=== PATIENT | male | born 1980 | race Hispanic/Latino ===

== ENCOUNTER 2016-10-08 22:34 | Observation (INO) | payer SELFPAY ==
[2016-10-08 22:42] VITALS: BMI 38.7
[2016-10-08] MEDS ORDERED: Sodium Chloride 0.9% 1,000 ML IV STA (22:52)
[2016-10-08] MEDS ORDERED: HYDROmorphone 2 mg/ml ISec IVP STA (22:53)
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
[2016-10-08 23:35] LABS: URINE BILIRUBIN NEGATIVE (NEGATIVE); URINE BLOOD LARGE (NEGATIVE); URINE GLUCOSE (UA) NEGATIVE (NEGATIVE); URINE LEUKOCYTE ESTERASE SMALL Leu/uL (NEGATIVE); URINE NITRATE NEGATIVE (NEGATIVE); URINE PROTEIN 100 mg/dL (<30 mg/dL)
[2016-10-08 23:48] LABS: BASO # 0.03 K/mm3 (0.0-2.0); BASO % 0.4 % (0.0-3.0); EOS # 0.1 (0.0-0.7); EOS % 1.3 % (1.5-5.0); GRAN # 5.11 (1.4-6.5); GRAN % 67.8 % (50.0-68.0); HEMOGLOBIN 13.2 gm/dL (14.0-18.0); LYMPH # 1.7 (1.2-3.4); LYMPH % 22.4 % (22.0-35.0); MEAN CELL VOLUME 93.8 fL (80.0-105.0); MEAN CORPUSCULAR HEMOGLOBIN 32.7 pg (25.0-35.0); MEAN CORPUSCULAR HGB CONC 34.8 g/dl (31.0-37.0); MEAN PLATELET VOLUME 9.9 fl (7.0-11.0); MONO # 0.6 (0.1-0.6); MONO % 8.1 % (1.0-6.0); PLATELET COUNT 234 10^3/uL (120.0-450.0); RBC 4.04 10^6/uL (3.5-6.1); RED CELL DISTRIBUTION WIDTH 13.7 % (11.5-14.5); URINE APPEARANCE CLOUDY (CLEAR); URINE COLOR LIGHT RED (YELLOW); WHITE BLOOD COUNT 7.5 10^3/ul (4.5-11.0)
[2016-10-08 23:52] LABS: URINE BACTERIA FEW (NEG); URINE EPITHELIAL CELLS 0 - 2 /hpf (0-5); URINE RBC 25 - 30 /hpf (0-2)
[2016-10-08 23:55] LABS: ALB/GLOB RATIO 1.1 (1.1-1.8); ALT/SGPT 34 U/L (7-56); AST/SGOT 33 U/L (15-59); BLOOD UREA NITROGEN 20 mg/dL (7-21); GFR AFRICAN-AMERICAN > 60; GFR NON-AFRICAN AMERICAN > 60
--- NOTE | 2016-10-09 00:22 | CT ---
EXAM: CT Abdomen and Pelvis Without Intravenous Contrast CLINICAL HISTORY: 35 years old, male; Pain; Abdominal pain; Flank; Right; Prior surgery; Surgery date: <1 month; Surgery type: Stent; Additional info: Flank pain TECHNIQUE: Axial computed tomography images of the abdomen and pelvis without intravenous contrast. This CT exam was performed using one or more of the following dose reduction techniques: automated exposure control, adjustment of the mA and/or kV according to patient size, and/or use of iterative reconstruction technique. Coronal and sagittal reformatted images were created and reviewed. COMPARISON: CT - ABD PELVIS W/O PO OR IV CONT 01/13/2016 5:56:14 PM FINDINGS: Lower thorax: Minimal atelectasis/scarring. ABDOMEN: Liver: Unremarkable. Gallbladder and bile ducts: No calcified stones. No ductal dilation. Pancreas: Unremarkable. No ductal dilation. Spleen: Mild splenomegaly. Adrenals: No mass. Kidneys and ureters: Punctate calculus within LEFT kidney. No hydronephrosis. LEFT ureteral stent. Stomach and bowel: No definite mural thickening. No obstruction. Appendix: Normal caliber. No inflammation. PELVIS: Bladder: Unremarkable. No stones. Reproductive: Unremarkable as visualized. ABDOMEN and PELVIS: Intraperitoneal space: No significant fluid collection. No free air. Bones/joints: No acute fracture. Soft tissues: Unremarkable. Vasculature: Unremarkable. No aneurysm. Lymph nodes: No pathologically enlarged lymph nodes. IMPRESSION: 1. Nonobstructing renal calculus. 2. Incidental/non-acute findings are described above.
[2016-10-09] MEDS ORDERED: cefTRIAXone 1 gm 1 GM/100 ML BAG IVPB STA (00:38)
[2016-10-09] MEDS ORDERED: HYDROmorphone 2 mg/ml ISec IVP PRN (01:58)
[2016-10-09] MEDS ORDERED: Sodium Chloride 0.9% 100 ML IV SCH (01:58)
[2016-10-09 02:30] LABS: INR 1.06 (0.93-1.08); PARTIAL THROMBOPLASTIN TIME 26.3 Seconds (23.7-30.8); PROTHROMBIN TIME 11.5 Seconds (9.9-11.8)
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
[2016-10-09] MEDS ORDERED: HYDROmorphone 1 mg/ml ISec IVP PRN (07:02)
[2016-10-09 07:11] LABS: BASO # 0.03 K/mm3 (0.0-2.0); BASO % 0.5 % (0.0-3.0); EOS # 0.1 (0.0-0.7); EOS % 2.2 % (1.5-5.0); GRAN % 61.8 % (50.0-68.0); HEMOGLOBIN 12.5 gm/dL (14.0-18.0); LYMPH # 1.5 (1.2-3.4); LYMPH % 24.6 % (22.0-35.0); MEAN CELL VOLUME 94.7 fL (80.0-105.0); MEAN CORPUSCULAR HEMOGLOBIN 31.8 pg (25.0-35.0); MEAN CORPUSCULAR HGB CONC 33.6 g/dl (31.0-37.0); MEAN PLATELET VOLUME 9.6 fl (7.0-11.0); MONO # 0.7 (0.1-0.6); MONO % 10.9 % (1.0-6.0); PLATELET COUNT 199 10^3/uL (120.0-450.0); RBC 3.93 10^6/uL (3.5-6.1)
[2016-10-09 07:28] LABS: ALB/GLOB RATIO 1.3 (1.1-1.8); ALBUMIN 3.8 g/dL (3.0-4.8); ALT/SGPT 33 U/L (7-56); AST/SGOT 30 U/L (15-59); BLOOD UREA NITROGEN 20 mg/dL (7-21); CALCIUM 8.8 mg/dL (8.4-10.5); GFR AFRICAN-AMERICAN > 60; GFR NON-AFRICAN AMERICAN > 60
[2016-10-09 08:10] VITALS: PULSE 52; RESP 20
[2016-10-09 08:46] LABS: BARBITURATES, UR NEGATIVE (NEGATIVE); BENZODIAZEPINES, UR NEGATIVE (NEGATIVE); OPIATES, UR POSITIVE (NEGATIVE); PHENCYCLIDINE, UR NEGATIVE (NEGATIVE)
[2016-10-09] MEDS ORDERED: HYDROmorphone 2 mg/ml ISec IVP STA ×2 (08:58)
[2016-10-09] MEDS ORDERED: HYDROmorphone 1 mg/ml ISec IVP STA (08:59)
--- NOTE | 2016-10-09 10:39 | RAD ---
HISTORY: is left ureteral stone visible COMPARISON: No prior. FINDINGS: BOWEL: Normal. No obstruction. No free air. BONES: Normal. OTHER FINDINGS: There is a left ureteral stent. There are no visible stones along side the stent or within the kidney IMPRESSION: No active disease.
--- NOTE | 2016-10-09 13:02 | US ---
HISTORY: Leg pain and swelling. Evaluate for DVT PHYSICIAN(S): Otto Sewell MD. TECHNIQUE: Duplex sonography and color-flow Doppler with graded compression were used to evaluate the deep venous systems of both lower extremities. FINDINGS: The visualized deep venous systems of both lower extremities are sonographically normal and compressible. Normal wave forms and augmentation are seen. There is no sonographic evidence for deep venous thrombosis in the visualized segments of both lower extremities. IMPRESSION: No sonographic evidence for deep venous thrombosis in the visualized segments of both lower extremities.
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
[2016-10-09] MEDS ORDERED: HYDROmorphone 1 mg/ml ISec IVP ONE (14:10)
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
[2016-10-09 18:07] VITALS: BP 127/78; TEMP 97; O2SAT 98
== END 2016-10-09 18:35 | disposition home or self-care (01) ==
LOC: ED 22:34 → ERH 10-09 00:37 → 3RNO 10-09 01:50
PROVIDERS: ADMIT Internal Medicine; ATTEND Internal Medicine
DX: N20.0 Calculus of kidney (principal); N39.0 Urinary tract infection, site not specified; I10 Essential (primary) hypertension; F17.290 Nicotine dependence, other tobacco product, uncomplicated; E78.5 Hyperlipidemia, unspecified; E87.6 Hypokalemia; Z86.718 Personal history of other venous thrombosis and embolism; Z79.01 Long term (current) use of anticoagulants
CPT/HCPCS: 74022; 74176; 80053; 81001; 84550; 85025; 85610; 85730; 86140; 87040; 87086; 93970; 96365; 96366; 96375; 96376; 99284; C9113; G0378; G0480; J0696; J1170; J2405; J3480; J7040

== ENCOUNTER 2016-10-11 21:04 | Observation (INO) | payer SELFPAY ==
[2016-10-11 21:05] VITALS: BMI 38.7
[2016-10-11] MEDS ORDERED: Sodium Chloride 0.9% 1,000 ML IV STA (22:06)
[2016-10-11] MEDS: HYDROmorphone 2 mg/ml ISec IVP STA (22:19)
[2016-10-11 22:21] LABS: BASO # 0.03 K/mm3 (0.0-2.0); BASO % 0.6 % (0.0-3.0); EOS # 0.3 (0.0-0.7); EOS % 4.7 % (1.5-5.0); GRAN # 3.19 (1.4-6.5); GRAN % 60.2 % (50.0-68.0); HEMOGLOBIN 14.7 gm/dL (14.0-18.0); LYMPH # 1.2 (1.2-3.4); LYMPH % 23.2 % (22.0-35.0); MEAN CELL VOLUME 93.9 fL (80.0-105.0); MEAN CORPUSCULAR HEMOGLOBIN 33.3 pg (25.0-35.0); MEAN CORPUSCULAR HGB CONC 35.5 g/dl (31.0-37.0); MEAN PLATELET VOLUME 9.4 fl (7.0-11.0); MONO # 0.6 (0.1-0.6); MONO % 11.3 % (1.0-6.0); PH,URINE 7.5 (4.7-8.0); PLATELET COUNT 255 10^3/uL (120.0-450.0); RBC 4.41 10^6/uL (3.5-6.1); RED CELL DISTRIBUTION WIDTH 13.5 % (11.5-14.5); URINE BILIRUBIN NEGATIVE (NEGATIVE); URINE BLOOD LARGE (NEGATIVE); URINE GLUCOSE (UA) NEGATIVE (NEGATIVE); URINE LEUKOCYTE ESTERASE SMALL Leu/uL (NEGATIVE); URINE NITRATE NEGATIVE (NEGATIVE); URINE PROTEIN 30 mg/dL (<30 mg/dL); URINE UROBILINOGEN 0.2 E.U./dL (<1 E.U./dL); WHITE BLOOD COUNT 5.3 10^3/ul (4.5-11.0)
[2016-10-11 22:23] LABS: URINE COLOR YELLOW (YELLOW)
[2016-10-11 22:24] LABS: URINE APPEARANCE SL CLOUDY (CLEAR)
[2016-10-11 22:26] LABS: ALB/GLOB RATIO 1.2 (1.1-1.8); ALBUMIN 4.3 g/dL (3.0-4.8); ALT/SGPT 39 U/L (7-56); AST/SGOT 33 U/L (15-59); BLOOD UREA NITROGEN 17 mg/dL (7-21); CALCIUM 9.5 mg/dL (8.4-10.5); GFR AFRICAN-AMERICAN > 60; GFR NON-AFRICAN AMERICAN > 60; LIPASE 118 U/L (23-300); URINE BACTERIA FEW (NEG); URINE RBC TNTC /hpf (0-2)
[2016-10-11 22:31] LABS: INR 1.14 (0.93-1.08); PARTIAL THROMBOPLASTIN TIME 28.8 Seconds (23.7-30.8); PROTHROMBIN TIME 12.3 Seconds (9.9-11.8)
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
[2016-10-11] MEDS ORDERED: HYDROmorphone 1 mg/ml ISec IVP STA (23:10)
--- NOTE | 2016-10-12 00:07 | US ---
EXAM: US Retroperitoneal Limited, Renal CLINICAL HISTORY: 35 years old, male; Pain; Other: Lt flank pain/lt ureteral stent 2 weeks; Additional info: L flank pain, h/o ureteral stent TECHNIQUE: Real-time ultrasound of the retroperitoneum (limited) with image documentation. COMPARISON: CT - ABD PELVIS W/O PO OR IV CONT 10/08/2016 11:09:02 PM FINDINGS: Right kidney: Normal echogenicity. No calculi. No hydronephrosis. Left kidney: Normal echogenicity. No calculi. No hydronephrosis. IMPRESSION: 1.No acute findings.
[2016-10-12] MEDS ORDERED: HYDROmorphone 1 mg/ml ISec IVP STA (00:50)
[2016-10-12] MEDS ORDERED: cefTRIAXone 1 gm 1 GM/100 ML BAG IVPB STA (00:56)
[2016-10-12] MEDS: HYDROmorphone 2 mg/ml ISec IVP STA (01:08)
[2016-10-12] MEDS: HYDROmorphone 1 mg/ml ISec IVP PRN ×6 (02:57→23:00)
[2016-10-12] MEDS ORDERED: Pneumococcal 23-Valent Vaccine IM ONE (03:46)
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
[2016-10-12 07:51] LABS: INR 1.19 (0.93-1.08); PROTHROMBIN TIME 12.8 Seconds (9.9-11.8)
[2016-10-12 08:01] LABS: BASO # 0.03 K/mm3 (0.0-2.0); BASO % 0.6 % (0.0-3.0); EOS # 0.3 (0.0-0.7); EOS % 6.1 % (1.5-5.0); GRAN # 2.47 (1.4-6.5); GRAN % 50.2 % (50.0-68.0); HEMOGLOBIN 13.5 gm/dL (14.0-18.0); LYMPH # 1.4 (1.2-3.4); LYMPH % 28.7 % (22.0-35.0); MEAN CELL VOLUME 93.4 fL (80.0-105.0); MEAN CORPUSCULAR HEMOGLOBIN 31.8 pg (25.0-35.0); MEAN PLATELET VOLUME 9.5 fl (7.0-11.0); MONO # 0.7 (0.1-0.6); MONO % 14.4 % (1.0-6.0); PLATELET COUNT 228 10^3/uL (120.0-450.0); RBC 4.25 10^6/uL (3.5-6.1); RED CELL DISTRIBUTION WIDTH 13.5 % (11.5-14.5); WHITE BLOOD COUNT 4.9 10^3/ul (4.5-11.0)
[2016-10-12 08:12] LABS: ALB/GLOB RATIO 1.1 (1.1-1.8); ALBUMIN 3.6 g/dL (3.0-4.8); ALT/SGPT 33 U/L (7-56); AST/SGOT 33 U/L (15-59); BLOOD UREA NITROGEN 14 mg/dL (7-21); CALCIUM 8.9 mg/dL (8.4-10.5); GFR AFRICAN-AMERICAN > 60; GFR NON-AFRICAN AMERICAN > 60
[2016-10-12] MEDS ORDERED: Enoxaparin 40 mg Syringe SC SCH (10:00)
[2016-10-12] MEDS: Sodium Chloride 0.9% 1,000 ML IV SCH (13:06)
[2016-10-12] MEDS ORDERED: HYDROmorphone 0.5 mg/0.5 ml ISec IVP STA (23:44)
[2016-10-13] MEDS: HYDROmorphone 1 mg/ml ISec IVP PRN ×2 (04:15→08:16)
[2016-10-13 07:42] LABS: BASO # 0.06 K/mm3 (0.0-2.0); BASO % 1.2 % (0.0-3.0); EOS # 0.3 (0.0-0.7); GRAN # 2.49 (1.4-6.5); GRAN % 51.1 % (50.0-68.0); HEMOGLOBIN 14.5 gm/dL (14.0-18.0); LYMPH # 1.3 (1.2-3.4); LYMPH % 26.9 % (22.0-35.0); MEAN CELL VOLUME 93.5 fL (80.0-105.0); MEAN CORPUSCULAR HEMOGLOBIN 32.5 pg (25.0-35.0); MEAN CORPUSCULAR HGB CONC 34.8 g/dl (31.0-37.0); MEAN PLATELET VOLUME 9.2 fl (7.0-11.0); MONO # 0.7 (0.1-0.6); MONO % 14.8 % (1.0-6.0); PLATELET COUNT 219 10^3/uL (120.0-450.0); RBC 4.46 10^6/uL (3.5-6.1); RED CELL DISTRIBUTION WIDTH 13.3 % (11.5-14.5); WHITE BLOOD COUNT 4.9 10^3/ul (4.5-11.0)
[2016-10-13 07:47] LABS: INR 1.17 (0.93-1.08); PROTHROMBIN TIME 12.6 Seconds (9.9-11.8)
[2016-10-13 08:06] VITALS: RESP 20; TEMP 97.7
[2016-10-13 08:06] LABS: ALB/GLOB RATIO 1.2 (1.1-1.8); ALBUMIN 3.9 g/dL (3.0-4.8); ALT/SGPT 37 U/L (7-56); AST/SGOT 29 U/L (15-59); BLOOD UREA NITROGEN 14 mg/dL (7-21); GFR AFRICAN-AMERICAN > 60; GFR NON-AFRICAN AMERICAN > 60
[2016-10-13] MEDS: Sodium Chloride 0.9% 1,000 ML IV SCH ×2 (10:15→18:50)
[2016-10-13] MEDS ORDERED: HYDROmorphone 0.5 mg/0.5 ml ISec IVP PRN (11:58)
[2016-10-13] MEDS: HYDROmorphone 0.5 mg/0.5 ml ISec IVP PRN ×2 (12:47→18:49)
--- NOTE | 2016-10-13 13:53 | CP.PCM.PN ---
<Nelly Myles - Last Filed: 10/13/16 17:09> Subjective - Date & Time of Evaluation Date of Evaluation: 10/13/16 Time of Evaluation: 09:15 - Subjective Subjective: Patient seen and examined at bedside. Per nursing, no acute findings overnight. Patient reports still having L flank pain. Vomited after breakfast, unwitnessed. No other complaints at this time. Denies headache, dizziness, CP, SOB, urinary symptoms, changes in bowel habits. Objective - Vital Signs/Intake and Output Vital Signs (last 24 hours): Temp Pulse Resp BP Pulse Ox 97.7 F 50 L 20 113/79 96 10/13/16 08:05 10/13/16 12:49 10/13/16 08:05 10/13/16 10:18 10/13/16 08:05 Intake and Output: 10/13/16 10/13/16 06:59 18:59 Intake Total 3240 Balance 3240 - Medications Medications: Current Medications Atorvastatin Calcium (Lipitor) 40 mg PO DAILY [facility] Last Admin: 10/13/16 10:14 Dose: 40 mg Hydromorphone HCl (Dilaudid) 0.5 mg IVP Q6H PRN PRN Reason: Pain, severe (8-10) Last Admin: 10/13/16 12:47 Dose: 0.5 mg Sodium Chloride (Sodium Chloride 0.9%) 1,000 mls @ 100 mls/hr IV .Q10H [facility] Last Admin: 10/13/16 10:15 Dose: 100 mls/hr Lisinopril (Zestril) 5 mg PO DAILY [facility] Last Admin: 10/13/16 10:18 Dose: Not Given Ondansetron HCl (Zofran Inj) 4 mg IVP Q4H PRN PRN Reason: Nausea/Vomiting Pantoprazole Sodium (Protonix Inj) 40 mg IVP DAILY [facility] Last Admin: 10/13/16 10:23 Dose: Not Given Phenazopyridine HCl (Pyridium) 200 mg PO TID [facility] Last Admin: 10/13/16 13:21 Dose: 200 mg Tamsulosin HCl (Flomax) 0.4 mg PO DAILY [facility] Last Admin: 10/13/16 10:14 Dose: 0.4 mg Warfarin Sodium (Coumadin) 6 mg PO 1800 [facility] PRN Reason: Protocol Last Admin: 10/12/16 17:45 Dose: 6 mg - Labs Labs: 10/13/16 07:10 10/13/16 07:10 PT 12.6 Seconds (9.9-11.8) H 10/13/16 07:10 INR 1.17 (0.93-1.08) H 10/13/16 07:10 APTT 28.8 Seconds (23.7-30.8) 10/11/16 20:05 - Constitutional Appears: Well, No Acute Distress - Head Exam Head Exam: ATRAUMATIC, NORMAL INSPECTION - Eye Exam Eye Exam: EOMI, Normal appearance Pupil Exam: NORMAL ACCOMODATION - ENT Exam ENT Exam: Mucous Membranes Moist - Neck Exam Neck Exam: Full ROM - Respiratory Exam Respiratory Exam: Clear to Ausculation Bilateral, NORMAL BREATHING PATTERN. absent: Rales, Rhonchi, Wheezes - Cardiovascular Exam Cardiovascular Exam: Bradycardia, REGULAR RHYTHM, +S1, +S2 - GI/Abdominal Exam GI & Abdominal Exam: Soft, Tenderness, Normal Bowel Sounds. absent: Firm, Guarding, Rigid - Extremities Exam Extremities Exam: Normal Inspection. absent: Tenderness - Back Exam Back Exam: CVA tenderness (L), NORMAL INSPECTION - Neurological Exam Neurological Exam: Alert, Awake, Oriented x3 - Psychiatric Exam Psychiatric exam: Normal Affect, Normal Mood - Skin Skin Exam: Normal Color, Warm Assessment and Plan - Assessment and Plan (Free Text) Assessment: 35 year old male, whose past medical history includes DVT, hypertension, hyperlipdemia, and nephrolithiasis, who presented to the ED complaining of left flank pain Plan: 1. Renal Colic with Non-Obstructing Renal Stone -Renal colic likely complication from stent placement -Renal u/s showing no hydronephrosis -UA showed large amounts of blood -Cont flomax and phenazo -IVF: NS 100mls/hr -Dilaudid 0.5mg Q6H PRN for pain control, hold if HR <50 bpm -Per nursing, patient has been requesting pain medication on the hour -Zofran 4mg Q4H PRN for N/V -Urology consulted, will follow recommendations -Attempting to obtain records of stent placement from [place] where patient was incarcerated. 2. Urinary Tract Infection -UA showing small LE -Rocephin given once -WBC wnl and afebrile -Urine cultures no growth -Blood cx show no growth 3. History of LLE DVT -Patient reports he was diagnosed with LLE DVT 7 months ago and has been taking 6mg Coumadin qd and has been managed by Dr. Kim -Called PMD office number that was provided by patient, office does not have any record of the patient -Bilateral LE duplex done on 10/09 showed no active DVT -INR 1.17 -Coumadin 6mg PO daily 4. History of Hypertension -Cont lisinopril and lopressor 5. History of HLD -Cont Lipitor 6. GI/DVT Prophylaxis - Protonix/scd's Nelly Ledesmaita, PGY-1 <Navjot Montenegro - Last Filed: 10/13/16 17:29> Objective - Vital Signs/Intake and Output Vital Signs (last 24 hours): Temp Pulse Resp BP Pulse Ox 97.7 F 50 L 20 113/79 96 10/13/16 08:05 10/13/16 12:49 10/13/16 08:05 10/13/16 10:18 10/13/16 08:05 Intake and Output: 10/13/16 10/13/16 06:59 18:59 Intake Total 3240 Balance 3240 - Medications Medications: Current Medications Atorvastatin Calcium (Lipitor) 40 mg PO DAILY [facility] Last Admin: 10/13/16 10:14 Dose: 40 mg Hydromorphone HCl (Dilaudid) 0.5 mg IVP Q6H PRN PRN Reason: Pain, severe (8-10) Last Admin: 10/13/16 12:47 Dose: 0.5 mg Sodium Chloride (Sodium Chloride 0.9%) 1,000 mls @ 100 mls/hr IV .Q10H [facility] Last Admin: 10/13/16 10:15 Dose: 100 mls/hr Lisinopril (Zestril) 5 mg PO DAILY [facility] Last Admin: 10/13/16 10:18 Dose: Not Given Ondansetron HCl (Zofran Inj) 4 mg IVP Q4H PRN PRN Reason: Nausea/Vomiting Pantoprazole Sodium (Protonix Inj) 40 mg IVP DAILY [facility] Last Admin: 10/13/16 10:23 Dose: Not Given Phenazopyridine HCl (Pyridium) 200 mg PO TID [facility] Last Admin: 10/13/16 17:18 Dose: 200 mg Tamsulosin HCl (Flomax) 0.4 mg PO DAILY [facility] Last Admin: 10/13/16 10:14 Dose: 0.4 mg Warfarin Sodium (Coumadin) 6 mg PO 1800 [facility] PRN Reason: Protocol Last Admin: 10/13/16 17:18 Dose: 6 mg - Labs Labs: 10/13/16 07:10 10/13/16 07:10 PT 12.6 Seconds (9.9-11.8) H 10/13/16 07:10 INR 1.17 (0.93-1.08) H 10/13/16 07:10 APTT 28.8 Seconds (23.7-30.8) 10/11/16 20:05 Attending/Attestation - Attestation I have personally seen and examined this patient.: Yes I have fully participated in the care of the patient.: Yes I have reviewed all pertinent clinical information, including history, physical exam and plan: Yes Notes (Text): 10/13/16 17:23 35 year old male with past medical history of ?DVT on coumadin, hypertension, dyslipidemia and history of nephrolithiasis s/p stent placement presented with complaint of left flank pain. Renal US was negative. Patient has refused abdominal xray. Urology evaluation was requested. Case was discussed with Dr. Hooker who recommended initially outpatient follow up with his own urology for stent removal as patient was not complying with revealing information regarding when/why stent was placed. However now patient has consented and we will attempt to obtain records from [place] where patient was recently incarcerated. He is on dilaudid 1 mg q4h prn which we will decrease dose as he has some bradycardia. He was counselled on risks of opioid abuse. He is on zofran prn, flomax and phenazo. Will follow up with urology recommendations. He is on coumadin for reported history of DVT 7 months prior. However, when we called his listed pmd Dr. Kim, his office does not have any records of patient. Continue with home medications for hypertension and dyslipidemia. Navjot Montenegro MD Hospitalist.
--- NOTE | 2016-10-13 19:53 | PCM.URO ---
Urology Progress Note - Subjective Abdominal Pain: Yes (no rebound or guarding ) Flank Pain: Yes (no cvat) Vomiting: No - Objective Lab Studies: Reviewed (all within normal post op) Lab Results Last 24 Hours: Laboratory Results - last 24 hr 10/13/16 10/13/16 10/13/16 07:10 07:10 07:10 WBC 4.9 RBC 4.46 Hgb 14.5 Hct 41.7 L MCV 93.5 MCH 32.5 MCHC 34.8 RDW 13.3 Plt Count 219 MPV 9.2 Gran % 51.1 Lymph % (Auto) 26.9 [place] % (Auto) 14.8 H Eos % (Auto) 6.0 H Baso % (Auto) 1.2 Gran # 2.49 Lymph # 1.3 [place] # 0.7 H Eos # 0.3 Baso # 0.06 PT 12.6 H INR 1.17 H Sodium 138 Potassium 4.1 Chloride 100 Carbon Dioxide 29 Anion Gap 13 BUN 14 Creatinine 1.0 Est GFR ( Amer) > 60 Est GFR (Non-Af Amer) > 60 Random Glucose 85 Calcium 9.0 Total Bilirubin 1.0 AST 29 ALT 37 Alkaline Phosphatase 61 Total Protein 7.1 Albumin 3.9 Globulin 3.2 Albumin/Globulin Ratio 1.2 Intake & Output: Intake & Output 10/13/16 10/13/16 10/14/16 06:59 18:59 06:59 Intake Total 3240 Balance 3240 Weight 302 lb Intake: IV 2400 Right AC 2400 Oral 840 Other: # Voids Urine, Voided 2 15 # Bowel Movements 1 Vital Signs: Vital Signs - 24 hr 10/13/16 10/13/16 10/13/16 08:05 10:18 12:20 Temperature 97.7 F Pulse Rate 43 L 50 L 42 L Respiratory 20 Rate Blood Pressure 124/67 113/79 O2 Sat by Pulse 96 Oximetry 10/13/16 10/13/16 12:49 16:00 Temperature 97.7 F Pulse Rate 50 L 60 Respiratory 20 Rate Blood Pressure 118/72 O2 Sat by Pulse 96 Oximetry - Plan Additional Information: pt had stent placed in [facility]. pt refused adamantly including now to have a kub. we can try to get record but what he needs is out pt follow up and treatment. i discussed plan of care
[2016-10-13] MEDS ORDERED: HYDROmorphone 1 mg/ml ISec IVP STA (20:41)
[2016-10-14] MEDS ORDERED: HYDROmorphone 1 mg/ml ISec IVP STA (00:41)
[2016-10-14] MEDS: HYDROmorphone 0.5 mg/0.5 ml ISec IVP PRN ×2 (08:04→13:54)
[2016-10-14 08:41] VITALS: BP 120/83; PULSE 47; O2SAT 97
--- NOTE | 2016-10-14 09:22 | CP.PCM.PN ---
Subjective - Date & Time of Evaluation Date of Evaluation: 10/14/16 Time of Evaluation: 09:10 - Subjective Subjective: Patient seen and examined at bedside. Per nursing, patient was upset about dosage of dilaudid he was recieving. Patient recieved 1mg dilaudid x 2 (last night 20:49 and this morning at 01:35). Urology saw the patient is requesting medical records. Still awaiting medical records from [place]. Objective - Vital Signs/Intake and Output Vital Signs (last 24 hours): Temp Pulse Resp BP Pulse Ox 97.7 F 47 L 20 120/83 97 10/14/16 07:30 10/14/16 07:30 10/14/16 07:30 10/14/16 07:30 10/14/16 07:30 Intake and Output: 10/14/16 10/14/16 06:59 18:59 Intake Total 2820 Balance 2820 - Medications Medications: Current Medications Atorvastatin Calcium (Lipitor) 40 mg PO DAILY [facility] Last Admin: 10/13/16 10:14 Dose: 40 mg Hydromorphone HCl (Dilaudid) 0.5 mg IVP Q6H PRN PRN Reason: Pain, severe (8-10) Last Admin: 10/14/16 08:04 Dose: 0.5 mg Sodium Chloride (Sodium Chloride 0.9%) 1,000 mls @ 100 mls/hr IV .Q10H [facility] Last Admin: 10/13/16 18:50 Dose: 100 mls/hr Lisinopril (Zestril) 5 mg PO DAILY [facility] Last Admin: 10/13/16 10:18 Dose: Not Given Ondansetron HCl (Zofran Inj) 4 mg IVP Q4H PRN PRN Reason: Nausea/Vomiting Pantoprazole Sodium (Protonix Inj) 40 mg IVP DAILY [facility] Last Admin: 10/13/16 10:23 Dose: Not Given Phenazopyridine HCl (Pyridium) 200 mg PO TID [facility] Last Admin: 10/13/16 17:18 Dose: 200 mg Tamsulosin HCl (Flomax) 0.4 mg PO DAILY [facility] Last Admin: 10/13/16 10:14 Dose: 0.4 mg Warfarin Sodium (Coumadin) 6 mg PO 1800 [facility] PRN Reason: Protocol Last Admin: 08/07/17 17:18 Dose: 6 mg - Labs Labs: 10/13/16 07:10 10/13/16 07:10 PT 12.6 Seconds (9.9-11.8) H 10/13/16 07:10 INR 1.17 (0.93-1.08) H 10/13/16 07:10 APTT 28.8 Seconds (23.7-30.8) 10/11/16 20:05
--- NOTE | 2016-10-14 10:42 | CP.PCM.DIS ---
<Nelly Myles - Last Filed: 10/14/16 16:19> Provider - Provider Date of Admission: 10/12/16 01:01 Attending physician: Navjot Montenegro MD Primary care physician: NO PRIMARY CARE PROVIDER Consults: Urology: Glynn Time Spent in preparation of Discharge (in minutes): 37 Hospital Course - Lab Results Lab Results: Micro Results 10/12/16 12:20 Blood Blood Culture - Preliminary NO GROWTH AFTER 24 HOURS Most Recent Lab Values WBC 4.9 10^3/ul (4.5-11.0) 10/13/16 07:10 RBC 4.46 10^6/uL (3.5-6.1) 10/13/16 07:10 Hgb 14.5 gm/dL (14.0-18.0) 10/13/16 07:10 Hct 41.7 % (42.0-52.0) L 10/13/16 07:10 MCV 93.5 fL (80.0-105.0) 10/13/16 07:10 MCH 32.5 pg (25.0-35.0) 10/13/16 07:10 MCHC 34.8 g/dl (31.0-37.0) 10/13/16 07:10 RDW 13.3 % (11.5-14.5) 10/13/16 07:10 Plt Count 219 10^3/uL (120.0-450.0) 10/13/16 07:10 MPV 9.2 fl (7.0-11.0) 10/13/16 07:10 Gran % 51.1 % (50.0-68.0) 10/13/16 07:10 Lymph % (Auto) 26.9 % (22.0-35.0) 10/13/16 07:10 Greenwood % (Auto) 14.8 % (1.0-6.0) H 10/13/16 07:10 Eos % (Auto) 6.0 % (1.5-5.0) H 10/13/16 07:10 Baso % (Auto) 1.2 % (0.0-3.0) 10/13/16 07:10 Gran # 2.49 (1.4-6.5) 10/13/16 07:10 Lymph # 1.3 (1.2-3.4) 10/13/16 07:10 Greenwood # 0.7 (0.1-0.6) H 10/13/16 07:10 Eos # 0.3 (0.0-0.7) 10/13/16 07:10 Baso # 0.06 K/mm3 (0.0-2.0) 10/13/16 07:10 PT 12.6 Seconds (9.9-11.8) H 10/13/16 07:10 INR 1.17 (0.93-1.08) H 10/13/16 07:10 APTT 28.8 Seconds (23.7-30.8) 10/11/16 20:05 Sodium 138 mmol/L (132-148) 10/13/16 07:10 Potassium 4.1 mmol/L (3.6-5.0) 10/13/16 07:10 Chloride 100 mmol/L (95-110) 10/13/16 07:10 Carbon Dioxide 29 mmol/L (21-33) 10/13/16 07:10 Anion Gap 13 (10-20) 10/13/16 07:10 BUN 14 mg/dL (7-21) 10/13/16 07:10 Creatinine 1.0 mg/dL (0.5-1.4) 10/13/16 07:10 Est GFR ( Amer) > 60 10/13/16 07:10 Est GFR (Non-Af Amer) > 60 10/13/16 07:10 Random Glucose 85 mg/dL (70-110) 10/13/16 07:10 Calcium 9.0 mg/dL (8.4-10.5) 10/13/16 07:10 Total Bilirubin 1.0 mg/dL (0.2-1.3) 10/13/16 07:10 AST 29 U/L (15-59) 10/13/16 07:10 ALT 37 U/L (7-56) 10/13/16 07:10 Alkaline Phosphatase 61 U/L (38-133) 10/13/16 07:10 Total Protein 7.1 g/dL (5.8-8.3) 10/13/16 07:10 Albumin 3.9 g/dL (3.0-4.8) 10/13/16 07:10 Globulin 3.2 gm/dL 10/13/16 07:10 Albumin/Globulin Ratio 1.2 (1.1-1.8) 10/13/16 07:10 Lipase 118 U/L (23-300) 10/11/16 20:05 Urine Color Yellow (YELLOW) 10/11/16 20:05 Urine Appearance Sl cloudy (CLEAR) 10/11/16 20:05 Urine pH 7.5 (4.7-8.0) 10/11/16 20:05 Ur Specific Allyn 1.020 (1.005-1.035) 10/11/16 20:05 Urine Protein 30 mg/dL (<30 mg/dL) H 10/11/16 20:05 Urine Glucose (UA) Negative mg/dL (NEGATIVE) 10/11/16 20:05 Urine Ketones Negative mg/dL (NEGATIVE) 10/11/16 20:05 Urine Blood Large (NEGATIVE) H 10/11/16 20:05 Urine Nitrate Negative (NEGATIVE) 10/11/16 20:05 Urine Bilirubin Negative (NEGATIVE) 10/11/16 20:05 Urine Urobilinogen 0.2 E.U./dL (<1 E.U./dL) 10/11/16 20:05 Ur Leukocyte Esterase Small Matthew/uL (NEGATIVE) H 10/11/16 20:05 Urine RBC Tntc /hpf (0-2) 10/11/16 20:05 Urine WBC 2 - 5 /hpf (0-6) 10/11/16 20:05 Ur Epithelial Cells 1 - 3 /hpf (0-5) 10/11/16 20:05 Urine Bacteria Few (NEG) 10/11/16 20:05 - Hospital Course Hospital Course: Mr. Ramires is a 35 year old male, whose past medical history includes DVT, hypertension, hyperlipdemia, and nephrolithiasis, who presented to the ED complaining of left flank pain. Patient states that early in the afternoon on he suddenly felt a sharp left flank pain radiated to the front with associated nausea, three episodes of NBNB vomiting and inability to maintain PO intake. He was recently seen at [facility] on 10/09 for the same complaint. Urologist, Dr. Hooker, planned to remove his L ureteral stent next week and patient was discharged on phenazo. Patient states that his pain and inability to take PO pain medications due to vomiting are the reasons he came to the ED. A renal ultrasound done in the ED showed no hydronephrosis. A UA in the ED showed small LE and large amounts of blood. A recent CT abdomen/pelvis done showed a nonobstructing left renal calculus measuring approximately 2mm and a left ureteral stent. Lower extremity dopplers on previous admission was negative for DVT. Patient was admitted for observation for renal colic and intractable pain. Was started on IVF, given analgesia and zofran. Home medications were resumed. Urology was consulted and on the case. Blood cultures and urine cultures were negative. Attempts were made to contact [facility] for information regarding patients medical records. Phone call was never returned. Call was also made to PCP who patient provided to us. Office of Dr. Qureshi reports that they have no record of seeing the patient there. Patient was asked repeatedly about the urologist who placed the stent and patient refused to provide us with the name of the urologist. Stated that his books binder has that information but we were not provided with that information. During this admission, patient was constantly asking for narcotics. He was found to be bradycardic, dosage and frequency of dilaudid was decreased, with holding parameters. Patient was verbally abusive to the staff, continued to complain and insist that he specifically receive dilaudid 1mg q4H. On day of discharge patient was adament about leaving. He was ambulating and tolerating diet. Patient refused lab work, refused KUB imaging, and refused to be examined. Patient was ultimately cleared by urology with outpatient follow up within the week. Discharge Exam - Head Exam Head Exam: ATRAUMATIC, NORMAL INSPECTION Additional comments: On day of discharge, patient refused to be examined and refused blood work. Discharge Plan - Follow Up Plan Condition: STABLE Disposition: HOME/ ROUTINE Instructions: Pneumococcal Vaccine for Adults (DC), Urinary Tract Infection in Men (DC), Renal Colic (GEN), Heart Healthy Diet (DC) Additional Instructions: Patient is clear for discharge, patient to follow up with Urology and PCP within 1 week. Referrals: PCP,NO [Primary Care Provider] - <Navjot Montenegro - Last Filed: 10/14/16 16:38> Provider - Provider Date of Admission: 10/12/16 01:01 Attending physician: Navjot Montenegro MD Primary care physician: NO PRIMARY CARE PROVIDER Hospital Course - Lab Results Lab Results: Micro Results 10/12/16 12:20 Blood Blood Culture - Preliminary NO GROWTH AFTER 48 HOURS Most Recent Lab Values WBC 4.9 10^3/ul (4.5-11.0) 10/13/16 07:10 RBC 4.46 10^6/uL (3.5-6.1) 10/13/16 07:10 Hgb 14.5 gm/dL (14.0-18.0) 10/13/16 07:10 Hct 41.7 % (42.0-52.0) L 10/13/16 07:10 MCV 93.5 fL (80.0-105.0) 10/13/16 07:10 MCH 32.5 pg (25.0-35.0) 10/13/16 07:10 MCHC 34.8 g/dl (31.0-37.0) 10/13/16 07:10 RDW 13.3 % (11.5-14.5) 10/13/16 07:10 Plt Count 219 10^3/uL (120.0-450.0) 10/13/16 07:10 MPV 9.2 fl (7.0-11.0) 10/13/16 07:10 Gran % 51.1 % (50.0-68.0) 10/13/16 07:10 Lymph % (Auto) 26.9 % (22.0-35.0) 10/13/16 07:10 Greenwood % (Auto) 14.8 % (1.0-6.0) H 10/13/16 07:10 Eos % (Auto) 6.0 % (1.5-5.0) H 10/13/16 07:10 Baso % (Auto) 1.2 % (0.0-3.0) 10/13/16 07:10 Gran # 2.49 (1.4-6.5) 10/13/16 07:10 Lymph # 1.3 (1.2-3.4) 10/13/16 07:10 Greenwood # 0.7 (0.1-0.6) H 10/13/16 07:10 Eos # 0.3 (0.0-0.7) 10/13/16 07:10 Baso # 0.06 K/mm3 (0.0-2.0) 10/13/16 07:10 PT 12.6 Seconds (9.9-11.8) H 10/13/16 07:10 INR 1.17 (0.93-1.08) H 10/13/16 07:10 APTT 28.8 Seconds (23.7-30.8) 10/11/16 20:05 Sodium 138 mmol/L (132-148) 10/13/16 07:10 Potassium 4.1 mmol/L (3.6-5.0) 10/13/16 07:10 Chloride 100 mmol/L (95-110) 10/13/16 07:10 Carbon Dioxide 29 mmol/L (21-33) 10/13/16 07:10 Anion Gap 13 (10-20) 10/13/16 07:10 BUN 14 mg/dL (7-21) 10/13/16 07:10 Creatinine 1.0 mg/dL (0.5-1.4) 10/13/16 07:10 Est GFR ( Amer) > 60 10/13/16 07:10 Est GFR (Non-Af Amer) > 60 10/13/16 07:10 Random Glucose 85 mg/dL (70-110) 10/13/16 07:10 Calcium 9.0 mg/dL (8.4-10.5) 10/13/16 07:10 Total Bilirubin 1.0 mg/dL (0.2-1.3) 10/13/16 07:10 AST 29 U/L (15-59) 10/13/16 07:10 ALT 37 U/L (7-56) 10/13/16 07:10 Alkaline Phosphatase 61 U/L (38-133) 10/13/16 07:10 Total Protein 7.1 g/dL (5.8-8.3) 10/13/16 07:10 Albumin 3.9 g/dL (3.0-4.8) 10/13/16 07:10 Globulin 3.2 gm/dL 10/13/16 07:10 Albumin/Globulin Ratio 1.2 (1.1-1.8) 10/13/16 07:10 Lipase 118 U/L (23-300) 10/11/16 20:05 Urine Color Yellow (YELLOW) 10/11/16 20:05 Urine Appearance Sl cloudy (CLEAR) 10/11/16 20:05 Urine pH 7.5 (4.7-8.0) 10/11/16 20:05 Ur Specific Allyn 1.020 (1.005-1.035) 10/11/16 20:05 Urine Protein 30 mg/dL (<30 mg/dL) H 10/11/16 20:05 Urine Glucose (UA) Negative mg/dL (NEGATIVE) 10/11/16 20:05 Urine Ketones Negative mg/dL (NEGATIVE) 10/11/16 20:05 Urine Blood Large (NEGATIVE) H 10/11/16 20:05 Urine Nitrate Negative (NEGATIVE) 10/11/16 20:05 Urine Bilirubin Negative (NEGATIVE) 10/11/16 20:05 Urine Urobilinogen 0.2 E.U./dL (<1 E.U./dL) 10/11/16 20:05 Ur Leukocyte Esterase Small Matthew/uL (NEGATIVE) H 10/11/16 20:05 Urine RBC Tntc /hpf (0-2) 10/11/16 20:05 Urine WBC 2 - 5 /hpf (0-6) 10/11/16 20:05 Ur Epithelial Cells 1 - 3 /hpf (0-5) 10/11/16 20:05 Urine Bacteria Few (NEG) 10/11/16 20:05 Attending/Attestation - Attestation I have personally seen and examined this patient.: Yes I have fully participated in the care of the patient.: Yes I have reviewed all pertinent clinical information, including history, physical exam and plan: Yes Notes (Text): 10/14/16 16:26 35 year old male with past medical history of ?DVT on coumadin, hypertension, dyslipidemia and history of nephrolithiasis s/p stent placement presented with complaint of left flank pain. Renal US was negative. Urology evaluation was requested for requested for abdominal xray which patient refused. He was seen by two urologists during his visits this week and last week who both recommended outpatient urology follow up with his urologist. Patient was not forthcoming regarding details of his stent placement including who was the urologist who placed the stent and when and where and why stent was placed. Authorization for release of information was requested from [place] since yesterday, however nothing was sent back here. While in hospital patient was requesting only for iv dilaudid every 4 hours. He refused KUB as above. He refused labs and physical examination today. He states he is doing better and wants to go home to follow up with urology. Case was discussed with urology who recommended outpatient urology follow up with his urologist. It was explained to patient if the stent was temporarily placed than it is recommended to remove it within 6 months. Patient was given information for follow up with Dr. Maki if he is unable or unwilling to follow up with his urologist. Patient is discharged home to follow up pmd. Follow up with urology as above. Navjot Montenegro MD Hospitalist.
--- NOTE | 2016-10-14 19:43 | CARD ---
APPROVED REPORT EKG Measurement Heart [id number] <Conclusion> Sinus bradycardia Otherwise normal ECG
== END 2016-10-14 16:02 | disposition home or self-care (01) ==
LOC: ED 21:04 → ERH 10-12 01:01 → 5RNO 10-12 02:45
PROVIDERS: ADMIT Internal Medicine; ATTEND Internal Medicine
DX: N20.0 Calculus of kidney (principal); N39.0 Urinary tract infection, site not specified; I10 Essential (primary) hypertension; E78.5 Hyperlipidemia, unspecified; F17.290 Nicotine dependence, other tobacco product, uncomplicated; Z86.718 Personal history of other venous thrombosis and embolism; Z79.01 Long term (current) use of anticoagulants; Z88.6 Allergy status to analgesic agent
CPT/HCPCS: 36415; 76770; 80053; 81001; 83690; 85025; 85610; 85730; 87040; 87086; 93005; 96365; 96374; 99285; C9113; G0378; J0696; J1170; J2405; J7040

== ENCOUNTER 2016-11-10 20:04 | Emergency (ER) | payer SELFPAY ==
[2016-11-10 20:05] VITALS: BMI 38.7
[2016-11-10 20:26] VITALS: TEMP 98.4
[2016-11-10] MEDS ORDERED: HYDROmorphone 1 mg/ml ISec IM STA (21:37)
[2016-11-10 22:19] VITALS: BP 126/78; PULSE 89; RESP 16; O2SAT 97
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
== END 2016-11-10 22:18 | disposition home or self-care (01) ==
LOC: ED 20:04
DX: R10.9 Unspecified abdominal pain (principal)
CPT/HCPCS: 96372; 99284; J1170; J2405

== ENCOUNTER 2016-11-11 13:15 | Observation (INO) | payer SELFPAY ==
[2016-11-11 13:30] VITALS: BMI 41.5
[2016-11-11] MEDS ORDERED: HYDROmorphone 1 mg/ml ISec IVP PRN (14:47)
[2016-11-11 15:06] LABS: PH,URINE 7.5 (4.7-8.0); URINE BILIRUBIN NEGATIVE (NEGATIVE); URINE BLOOD LARGE (NEGATIVE); URINE GLUCOSE (UA) 100 mg/dL (NEGATIVE); URINE KETONE 15 mg/dL (NEGATIVE); URINE LEUKOCYTE ESTERASE MODERATE Leu/uL (NEGATIVE); URINE PROTEIN >=300 mg/dL (<30 mg/dL); URINE UROBILINOGEN >=8.0 E.U./dL (<1 E.U./dL)
[2016-11-11 15:07] LABS: URINE APPEARANCE CLOUDY (CLEAR); URINE COLOR LIGHT RED (YELLOW)
[2016-11-11 15:12] LABS: URINE RBC TNTC /hpf (0-2); URINE WBC 0 - 2 /hpf (0-6)
[2016-11-11] MEDS: Sodium Chloride 0.9% 1,000 ML IV SCH (15:19)
[2016-11-11 15:22] LABS: BASO # 0.03 K/mm3 (0.0-2.0); BASO % 0.3 % (0.0-3.0); EOS # 0.1 (0.0-0.7); EOS % 0.5 % (1.5-5.0); GRAN # 8.3 (1.4-6.5); GRAN % 75.9 % (50.0-68.0); HEMATOCRIT 35.6 % (42.0-52.0); LYMPH # 1.5 (1.2-3.4); LYMPH % 13.2 % (22.0-35.0); MEAN CELL VOLUME 93.4 fl (80.0-105.0); MEAN CORPUSCULAR HEMOGLOBIN 32.3 pg (25.0-35.0); MEAN CORPUSCULAR HGB CONC 34.6 g/dl (31.0-37.0); MEAN PLATELET VOLUME 9.1 fl (7.0-11.0); MONO # 1.1 (0.1-0.6); MONO % 10.1 % (1.0-6.0); RED CELL DISTRIBUTION WIDTH 13.8 % (11.5-14.5)
[2016-11-11 15:35] LABS: BLOOD UREA NITROGEN 14 mg/dL (7-21); CALCIUM 9.3 mg/dL (8.4-10.5); CARBON DIOXIDE 30 mmol/L (21-33); CHLORIDE 101 mmol/L (98-107); GFR AFRICAN-AMERICAN > 60; GLUCOSE,RANDOM 86 mg/dL (70-110); POTASSIUM 3.9 mmol/L (3.6-5.0); SODIUM 140 mmol/L (132-148)
[2016-11-11] MEDS ORDERED: HYDROmorphone 1 mg/ml ISec IVP STA (15:43)
--- NOTE | 2016-11-11 15:45 | CT ---
PROCEDURE: CT Abdomen and Pelvis without intravenous contrast HISTORY: abdominal and pelvic pain COMPARISON: 10/08/2016 TECHNIQUE: Without contrast.. Contrast Dose: 0 Radiation dose: Total exam DLP = 1904.94 mGy-cm. This CT exam was performed using one or more of the following dose reduction techniques: Automated exposure control, adjustment of the mA and/or kV according to patient size, and/or use of iterative reconstruction technique. FINDINGS: LOWER THORAX: Unremarkable. LIVER: Unremarkable. No gross lesion or ductal dilatation. GALLBLADDER AND BILE DUCTS: Unremarkable. PANCREAS: Unremarkable. No gross lesion or ductal dilatation. SPLEEN: Unremarkable. ADRENALS: Unremarkable. No mass. KIDNEYS AND URETERS: 2-3 mm nonobstructing left upper pole renal calculus. Left ureteral stent noted. No right renal calculus. No renal mass. No hydronephrosis. VASCULATURE: Unremarkable. No aortic aneurysm. BOWEL: Unremarkable. No obstruction. No gross mural thickening. APPENDIX: Unremarkable. Normal appendix. PERITONEUM: Unremarkable. No free fluid. No free air. LYMPH NODES: Unremarkable. No enlarged lymph nodes. BLADDER: Unremarkable. REPRODUCTIVE: Normal prostate BONES: No acute fracture. OTHER FINDINGS: None. IMPRESSION: Left ureteral stent. Nonobstructing 2-3 mm left upper pole renal calculus.
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
[2016-11-11] MEDS ORDERED: cefTRIAXone 1 gm 1 GM/100 ML BAG IVPB STA (16:42)
[2016-11-11] MEDS ORDERED: HYDROmorphone 2 mg/ml ISec IVP STA (16:42)
[2016-11-11 17:01] LABS: VENOUS BLOOD GAS BASE EXCESS 6.3 mmol/L (0.0-2.0); VENOUS BLOOD PH 7.38 (7.32-7.43)
[2016-11-11 18:00] LABS: ALB/GLOB RATIO 1.4 (1.1-1.8); ALKALINE PHOSPHATASE 70 U/L (38-126); ALT/SGPT 25 U/L (7-56); AST/SGOT 33 U/L (17-59); BILIRUBIN,TOTAL 0.6 mg/dL (0.2-1.3)
[2016-11-11 18:01] LABS: INR 1.06 (0.93-1.08); PARTIAL THROMBOPLASTIN TIME 25.8 Seconds (23.7-30.8)
[2016-11-11] MEDS ORDERED: Oxycodone/Acetaminophen 5/325 mg Tab PO PRN (18:31)
[2016-11-11] MEDS: HYDROmorphone 1 mg/ml ISec IVP PRN (19:48)
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
[2016-11-12] MEDS: Sodium Chloride 0.9% 1,000 ML IV SCH ×2 (01:40→05:46)
[2016-11-12] MEDS: HYDROmorphone 1 mg/ml ISec IVP PRN ×2 (05:44→13:56)
[2016-11-12 06:15] LABS: BASO # 0.02 K/mm3 (0.0-2.0); BASO % 0.2 % (0.0-3.0); EOS # 0.2 (0.0-0.7); EOS % 2.4 % (1.5-5.0); GRAN # 5.3 (1.4-6.5); GRAN % 64.7 % (50.0-68.0); HEMATOCRIT 36.5 % (42.0-52.0); LYMPH # 1.9 (1.2-3.4); LYMPH % 23.1 % (22.0-35.0); MEAN CELL VOLUME 94.6 fl (80.0-105.0); MEAN CORPUSCULAR HEMOGLOBIN 32.1 pg (25.0-35.0); MEAN PLATELET VOLUME 9.3 fl (7.0-11.0); MONO # 0.8 (0.1-0.6); MONO % 9.6 % (1.0-6.0); RED CELL DISTRIBUTION WIDTH 14.2 % (11.5-14.5); WHITE BLOOD COUNT 8.2 10^3/ul (4.5-11.0)
[2016-11-12 06:35] LABS: ALB/GLOB RATIO 1.2 (1.1-1.8); ALKALINE PHOSPHATASE 61 U/L (38-126); ALT/SGPT 25 U/L (7-56); AST/SGOT 30 U/L (17-59); BILIRUBIN,TOTAL 0.6 mg/dL (0.2-1.3); BLOOD UREA NITROGEN 14 mg/dL (7-21); CALCIUM 8.9 mg/dL (8.4-10.5); CARBON DIOXIDE 30 mmol/L (21-33); CHLORIDE 101 mmol/L (95-110); GFR AFRICAN-AMERICAN > 60; GLUCOSE,RANDOM 91 mg/dL (70-110); MAGNESIUM 1.7 mg/dL (1.7-2.2); SODIUM 139 mmol/L (132-148); TOTAL PROTEIN 6.7 g/dL (5.8-8.3)
[2016-11-12 06:41] LABS: PHOSPHOROUS 4.9 mg/dL (2.5-4.5)
[2016-11-12 08:00] VITALS: RESP 20
[2016-11-12] MEDS ORDERED: cefTRIAXone 1 gm 1 GM/100 ML BAG IVPB SCH (10:00)
--- NOTE | 2016-11-12 12:07 | CP.PCM.DIS ---
<Jeanna Olmstead - Last Filed: 11/12/16 14:23> Provider - Provider Date of Admission: 11/11/16 18:15 Attending physician: Tabatha Mccormack MD Primary care physician: NO PRIMARY CARE PROVIDER Consults: Uro - Dr. Durán Time Spent in preparation of Discharge (in minutes): 35 Diagnosis - Discharge Diagnosis (1) Flank pain Status: Acute (2) Renal colic on left side Status: Acute (3) UTI (urinary tract infection) Status: Acute (4) Left flank pain Status: Acute Hospital Course - Lab Results Lab Results: Most Recent Lab Values WBC 8.2 10^3/ul (4.5-11.0) D 11/12/16 05:20 RBC 3.86 10^6/uL (3.5-6.1) 11/12/16 05:20 Hgb 12.4 g/dL (14.0-18.0) L 11/12/16 05:20 Hct 36.5 % (42.0-52.0) L 11/12/16 05:20 MCV 94.6 fl (80.0-105.0) 11/12/16 05:20 MCH 32.1 pg (25.0-35.0) 11/12/16 05:20 MCHC 34.0 g/dl (31.0-37.0) 11/12/16 05:20 RDW 14.2 % (11.5-14.5) 11/12/16 05:20 Plt Count 204 10^3/uL (120.0-450.0) 11/12/16 05:20 MPV 9.3 fl (7.0-11.0) 11/12/16 05:20 Gran % 64.7 % (50.0-68.0) 11/12/16 05:20 Lymph % (Auto) 23.1 % (22.0-35.0) 11/12/16 05:20 Gregg % (Auto) 9.6 % (1.0-6.0) H 11/12/16 05:20 Eos % (Auto) 2.4 % (1.5-5.0) 11/12/16 05:20 Baso % (Auto) 0.2 % (0.0-3.0) 11/12/16 05:20 Gran # 5.30 (1.4-6.5) 11/12/16 05:20 Lymph # 1.9 (1.2-3.4) 11/12/16 05:20 [place]gg # 0.8 (0.1-0.6) H 11/12/16 05:20 Eos # 0.2 (0.0-0.7) 11/12/16 05:20 Baso # 0.02 K/mm3 (0.0-2.0) 11/12/16 05:20 PT 11.4 Seconds (9.9-11.8) 11/11/16 15:10 INR 1.06 (0.93-1.08) 11/11/16 15:10 APTT 25.8 Seconds (23.7-30.8) 11/11/16 15:10 pO2 64 mm/Hg (30-55) H 11/11/16 16:54 VBG pH 7.38 (7.32-7.43) 11/11/16 16:54 VBG pCO2 56.0 (40-60) 11/11/16 16:54 VBG HCO3 33.1 mmol/l (21-28) H 11/11/16 16:54 VBG Total CO2 34.8 mmol.L (22-28) H 11/11/16 16:54 VBG O2 Sat (Calc) 96.3 % (40-65) H 11/11/16 16:54 VBG Base Excess 6.3 mmol/L (0.0-2.0) H 11/11/16 16:54 VBG Potassium 3.6 mmol/L (3.6-5.2) 11/11/16 16:54 Sodium 139.0 mmol/L (132-148) 11/11/16 16:54 Chloride 104.0 mmol/L (98-107) 11/11/16 16:54 Glucose 90 mg/dl (75-110) 11/11/16 16:54 Lactate 0.9 mmol/L (0.7-2.1) 11/11/16 16:54 FiO2 21.0 % 11/11/16 16:54 Sodium 139 mmol/L (132-148) 11/12/16 05:20 Potassium 4.0 mmol/L (3.6-5.0) 11/12/16 05:20 Chloride 101 mmol/L (95-110) 11/12/16 05:20 Carbon Dioxide 30 mmol/L (21-33) 11/12/16 05:20 Anion Gap 12 (10-20) 11/12/16 05:20 BUN 14 mg/dL (7-21) 11/12/16 05:20 Creatinine 0.8 mg/dL (0.5-1.4) 11/12/16 05:20 Est GFR ( Amer) > 60 11/12/16 05:20 Est GFR (Non-Af Amer) > 60 11/12/16 05:20 Random Glucose 91 mg/dL (70-110) 11/12/16 05:20 Calcium 8.9 mg/dL (8.4-10.5) 11/12/16 05:20 Phosphorus 4.9 mg/dL (2.5-4.5) H 11/12/16 05:20 Magnesium 1.7 mg/dL (1.7-2.2) 11/12/16 05:20 Total Bilirubin 0.6 mg/dL (0.2-1.3) 11/12/16 05:20 AST 30 U/L (17-59) 11/12/16 05:20 ALT 25 U/L (7-56) 11/12/16 05:20 Alkaline Phosphatase 61 U/L (38-126) 11/12/16 05:20 Total Protein 6.7 g/dL (5.8-8.3) 11/12/16 05:20 Albumin 3.7 g/dL (3.0-4.8) 11/12/16 05:20 Globulin 3.0 gm/dL 11/12/16 05:20 Albumin/Globulin Ratio 1.2 (1.1-1.8) 11/12/16 05:20 Venous Blood Potassium 3.6 mmol/L (3.6-5.2) 11/11/16 16:54 Urine Color Light red (YELLOW) 11/11/16 14:30 Urine Appearance Cloudy (CLEAR) 11/11/16 14:30 Urine pH 7.5 (4.7-8.0) 11/11/16 14:30 Ur Specific [place] 1.015 (1.005-1.035) 11/11/16 14:30 Urine Protein >=300 mg/dL (<30 mg/dL) H 11/11/16 14:30 Urine Glucose (UA) 100 mg/dL (NEGATIVE) H 11/11/16 14:30 Urine Ketones 15 mg/dL (NEGATIVE) H 11/11/16 14:30 Urine Blood Large (NEGATIVE) H 11/11/16 14:30 Urine Nitrate Positive (NEGATIVE) H 11/11/16 14:30 Urine Bilirubin Negative (NEGATIVE) 11/11/16 14:30 Urine Urobilinogen >=8.0 E.U./dL (<1 E.U./dL) 11/11/16 14:30 Ur Leukocyte Esterase Moderate Matthew/uL (NEGATIVE) H 11/11/16 14:30 Urine RBC Tntc /hpf (0-2) 11/11/16 14:30 Urine WBC 0 - 2 /hpf (0-6) 11/11/16 14:30 - Hospital Course Hospital Course: Patient is a 35 year old male with a PMH of DVT, HTN, HLD, and nephrolithiasis w / L ureteral stent placement who was admitted for left flank plan 04/10 to the ureteral stent. On admission patient denied fever, chills, headache, dizziness , changes in vision, CP, palpitations, SOB, hemoptysis, nausea, vomiting, diarrhea, neck or neck pain. CT abd/pelvis showed no obstructing stones, no signs of pyelonephritis, and no hydronephrosis. UA showed moderate LE with nitrates, blood, and protein. Patient was put on Rocephin for UTI and dilaudid 1 Q8 for pain control. Patient was supposed to get stent taken out after he was off Warfarin for his DVT. Patient has had 6 months of warfarin therapy and is now 9 days status post Warfarin therapy with an INR of 1.06 on admission. We will discharge patient with Ciprofloxacin for his UTI, and he is to follow up with Uro for removal of his stent within 2-3 days. Patient is agreeable to plan and medications. Patient seen, examined, and reviewed with Attending Jeanna Olmstead PGY-1 - Date & Time of H&P Date of H&P: 11/12/16 Time of H&P: 14:24 Discharge Exam - Head Exam Head Exam: NORMAL INSPECTION, NORMOCEPHALIC - Eye Exam Eye Exam: EOMI, Normal appearance - ENT Exam ENT Exam: Mucous Membranes Moist - Respiratory Exam Respiratory Exam: Clear to PA & Lateral. absent: Rales, Rhonchi, Wheezes - Cardiovascular Exam Cardiovascular Exam: +S1, +S2. absent: JVD - GI/Abdominal Exam GI & Abdominal Exam: Normal Bowel Sounds, Soft. absent: Tenderness - Back Exam Back exam: CVA tenderness (L), CVA tenderness (R) - Neurological Exam Neurological exam: Alert, Oriented x3 - Psychiatric Exam Psychiatric exam: Normal Affect, Normal Mood - Skin Skin Exam: Dry, Intact, Normal Color, Warm Discharge Plan - Discharge Medications Prescriptions: Ciprofloxacin HCl [Cipro] 500 mg PO BID #14 tab - Follow Up Plan Condition: GUARDED Disposition: HOME/ ROUTINE Instructions: Ureteral Stent Placement (DC) Additional Instructions: 1. Follow up with PMD in 2 days. 2. Follow up with Dr. durán for stent removal as outpatient. call 3. Cont. to take Ciprofloxacin until completion. That is twice a day for 7 days. Referrals: [facility], [Non-Staff] - Quinton Durán MD [Staff Provider] - <Tabatha Mccormack - Last Filed: 11/12/16 14:33> Provider - Provider Date of Admission: 11/11/16 18:15 Attending physician: Tabatha Mccormack MD Primary care physician: NO PRIMARY CARE PROVIDER Hospital Course - Lab Results Lab Results: Most Recent Lab Values WBC 8.2 10^3/ul (4.5-11.0) D 11/12/16 05:20 RBC 3.86 10^6/uL (3.5-6.1) 11/12/16 05:20 Hgb 12.4 g/dL (14.0-18.0) L 11/12/16 05:20 Hct 36.5 % (42.0-52.0) L 11/12/16 05:20 MCV 94.6 fl (80.0-105.0) 11/12/16 05:20 MCH 32.1 pg (25.0-35.0) 11/12/16 05:20 MCHC 34.0 g/dl (31.0-37.0) 11/12/16 05:20 RDW 14.2 % (11.5-14.5) 11/12/16 05:20 Plt Count 204 10^3/uL (120.0-450.0) 11/12/16 05:20 MPV 9.3 fl (7.0-11.0) 11/12/16 05:20 Gran % 64.7 % (50.0-68.0) 11/12/16 05:20 Lymph % (Auto) 23.1 % (22.0-35.0) 11/12/16 05:20 Gregg % (Auto) 9.6 % (1.0-6.0) H 11/12/16 05:20 Eos % (Auto) 2.4 % (1.5-5.0) 11/12/16 05:20 Baso % (Auto) 0.2 % (0.0-3.0) 11/12/16 05:20 Gran # 5.30 (1.4-6.5) 11/12/16 05:20 Lymph # 1.9 (1.2-3.4) 11/12/16 05:20 [place]gg # 0.8 (0.1-0.6) H 11/12/16 05:20 Eos # 0.2 (0.0-0.7) 11/12/16 05:20 Baso # 0.02 K/mm3 (0.0-2.0) 11/12/16 05:20 PT 11.4 Seconds (9.9-11.8) 11/11/16 15:10 INR 1.06 (0.93-1.08) 11/11/16 15:10 APTT 25.8 Seconds (23.7-30.8) 11/11/16 15:10 pO2 64 mm/Hg (30-55) H 11/11/16 16:54 VBG pH 7.38 (7.32-7.43) 11/11/16 16:54 VBG pCO2 56.0 (40-60) 11/11/16 16:54 VBG HCO3 33.1 mmol/l (21-28) H 11/11/16 16:54 VBG Total CO2 34.8 mmol.L (22-28) H 11/11/16 16:54 VBG O2 Sat (Calc) 96.3 % (40-65) H 11/11/16 16:54 VBG Base Excess 6.3 mmol/L (0.0-2.0) H 11/11/16 16:54 VBG Potassium 3.6 mmol/L (3.6-5.2) 11/11/16 16:54 Sodium 139.0 mmol/L (132-148) 11/11/16 16:54 Chloride 104.0 mmol/L (98-107) 11/11/16 16:54 Glucose 90 mg/dl (75-110) 11/11/16 16:54 Lactate 0.9 mmol/L (0.7-2.1) 11/11/16 16:54 FiO2 21.0 % 11/11/16 16:54 Sodium 139 mmol/L (132-148) 11/12/16 05:20 Potassium 4.0 mmol/L (3.6-5.0) 11/12/16 05:20 Chloride 101 mmol/L (95-110) 11/12/16 05:20 Carbon Dioxide 30 mmol/L (21-33) 11/12/16 05:20 Anion Gap 12 (10-20) 11/12/16 05:20 BUN 14 mg/dL (7-21) 11/12/16 05:20 Creatinine 0.8 mg/dL (0.5-1.4) 11/12/16 05:20 Est GFR ( Amer) > 60 11/12/16 05:20 Est GFR (Non-Af Amer) > 60 11/12/16 05:20 Random Glucose 91 mg/dL (70-110) 11/12/16 05:20 Calcium 8.9 mg/dL (8.4-10.5) 11/12/16 05:20 Phosphorus 4.9 mg/dL (2.5-4.5) H 11/12/16 05:20 Magnesium 1.7 mg/dL (1.7-2.2) 11/12/16 05:20 Total Bilirubin 0.6 mg/dL (0.2-1.3) 11/12/16 05:20 AST 30 U/L (17-59) 11/12/16 05:20 ALT 25 U/L (7-56) 11/12/16 05:20 Alkaline Phosphatase 61 U/L (38-126) 11/12/16 05:20 Total Protein 6.7 g/dL (5.8-8.3) 11/12/16 05:20 Albumin 3.7 g/dL (3.0-4.8) 11/12/16 05:20 Globulin 3.0 gm/dL 11/12/16 05:20 Albumin/Globulin Ratio 1.2 (1.1-1.8) 11/12/16 05:20 Venous Blood Potassium 3.6 mmol/L (3.6-5.2) 11/11/16 16:54 Urine Color Light red (YELLOW) 11/11/16 14:30 Urine Appearance Cloudy (CLEAR) 11/11/16 14:30 Urine pH 7.5 (4.7-8.0) 11/11/16 14:30 Ur Specific [place] 1.015 (1.005-1.035) 11/11/16 14:30 Urine Protein >=300 mg/dL (<30 mg/dL) H 11/11/16 14:30 Urine Glucose (UA) 100 mg/dL (NEGATIVE) H 11/11/16 14:30 Urine Ketones 15 mg/dL (NEGATIVE) H 11/11/16 14:30 Urine Blood Large (NEGATIVE) H 11/11/16 14:30 Urine Nitrate Positive (NEGATIVE) H 11/11/16 14:30 Urine Bilirubin Negative (NEGATIVE) 11/11/16 14:30 Urine Urobilinogen >=8.0 E.U./dL (<1 E.U./dL) 11/11/16 14:30 Ur Leukocyte Esterase Moderate Matthew/uL (NEGATIVE) H 11/11/16 14:30 Urine RBC Tntc /hpf (0-2) 11/11/16 14:30 Urine WBC 0 - 2 /hpf (0-6) 11/11/16 14:30 Attending/Attestation - Attestation I have personally seen and examined this patient.: Yes I have fully participated in the care of the patient.: Yes I have reviewed all pertinent clinical information, including history, physical exam and plan: Yes Notes (Text): 11/12/16 14:30 Attending note; Patient seen and examined with resident. Patient is a 36-year-old male admitted with left flank pain and hematuria. 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 CT abdomen showed left ureteral stent with nonobstructing stone. patient was evaluated by urology Dr. Durán today. outpatient stent removal suggested. Treated with IV fluids, IV antibiotics. History of DVT in the past. Provoked episode. Completed treatment with Coumadin. Patient follows up with PMD in [place]. Obesity/ chronic opiate use/hypertension. discharge home today. Follow-up with Dr. Durán. diagnosis; Hematuria Left ureteral stent placement Opiate dependency Obesity Hypertension
[2016-11-12 16:12] VITALS: BP 116/66; PULSE 67; TEMP 98; O2SAT 96
--- NOTE | 2016-11-12 17:45 | CARD ---
APPROVED REPORT EKG Measurement Heart [id number] [place] [id number] <Conclusion> Marked sinus bradycardia Abnormal ECG
--- NOTE | 2016-11-12 17:57 | CARD ---
APPROVED REPORT EKG Measurement Heart [id number] <Conclusion> Marked sinus bradycardia Moderate voltage criteria for LVH, may be normal variant Nonspecific T wave abnormality Abnormal ECG
== END 2016-11-12 17:53 | disposition home or self-care (01) ==
LOC: ED 13:15 → ERH 18:15 → 3RNO 19:33
PROVIDERS: ADMIT Internal Medicine; ATTEND Internal Medicine
DX: N39.0 Urinary tract infection, site not specified (principal); N20.0 Calculus of kidney; R31.9 Hematuria, unspecified; E78.5 Hyperlipidemia, unspecified; I12.9 Hypertensive chronic kidney disease with stage 1 through stage 4 chronic kidney disease, or unspecified chronic kidney disease; N18.9 Chronic kidney disease, unspecified; F11.20 Opioid dependence, uncomplicated; F17.290 Nicotine dependence, other tobacco product, uncomplicated; E66.9 Obesity, unspecified; Z68.41 Body mass index [BMI] 40.0-44.9, adult; Z86.718 Personal history of other venous thrombosis and embolism; Z79.01 Long term (current) use of anticoagulants
CPT/HCPCS: 36415; 74176; 80053; 81001; 82803; 83735; 84100; 85025; 85610; 85730; 87086; 93005; 96365; 96374; 99284; G0378; J0696; J1170; J2405; J7040

== ENCOUNTER 2016-11-21 15:14 | Emergency (ER) | payer SELFPAY ==
[2016-11-21 15:31] VITALS: BMI 42.9
[2016-11-21 15:37] VITALS: RESP 18; TEMP 98.3; O2SAT 98
[2016-11-21] MEDS ORDERED: HYDROmorphone 1 mg/ml ISec IVP STA ×3 (16:13→19:29)
[2016-11-21] MEDS ORDERED: Sodium Chloride 0.9% 500 ML IV STA (16:13)
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
[2016-11-21 17:18] LABS: BASO # 0.04 K/mm3 (0.0-2.0); BASO % 0.7 % (0.0-3.0); EOS # 0.2 (0.0-0.7); EOS % 3.3 % (1.5-5.0); GRAN # 3.45 (1.4-6.5); HEMATOCRIT 42.5 % (42.0-52.0); LYMPH # 1.1 (1.2-3.4); LYMPH % 20.9 % (22.0-35.0); MEAN CELL VOLUME 92.2 fl (80.0-105.0); MEAN CORPUSCULAR HEMOGLOBIN 33.4 pg (25.0-35.0); MEAN CORPUSCULAR HGB CONC 36.2 g/dl (31.0-37.0); MEAN PLATELET VOLUME 9.4 fl (7.0-11.0); MONO # 0.6 (0.1-0.6); MONO % 11.1 % (1.0-6.0); RED CELL DISTRIBUTION WIDTH 13.1 % (11.5-14.5); WHITE BLOOD COUNT 5.4 10^3/ul (4.5-11.0)
[2016-11-21 17:28] LABS: ALB/GLOB RATIO 1.3 (1.1-1.8); ALKALINE PHOSPHATASE 79 U/L (38-126); ALT/SGPT 36 U/L (7-56); AST/SGOT 33 U/L (17-59); BILIRUBIN,TOTAL 1.1 mg/dL (0.2-1.3); BLOOD UREA NITROGEN 16 mg/dL (7-21); CALCIUM 9.7 mg/dL (8.4-10.5); CARBON DIOXIDE 30 mmol/L (21-33); CHLORIDE 98 mmol/L (98-107); GFR AFRICAN-AMERICAN > 60; GLUCOSE,RANDOM 99 mg/dL (70-110); LIPASE 54 U/L (23-300); POTASSIUM 4.2 mmol/L (3.6-5.0); SODIUM 141 mmol/L (132-148); TOTAL PROTEIN 8.4 g/dL (5.8-8.3)
[2016-11-21 19:04] VITALS: BP 118/75; PULSE 66
[2016-11-21 19:18] LABS: URINE BILIRUBIN NEGATIVE (NEGATIVE); URINE BLOOD LARGE (NEGATIVE); URINE GLUCOSE (UA) 100 mg/dL (NEGATIVE); URINE KETONE TRACE mg/dL (NEGATIVE); URINE LEUKOCYTE ESTERASE SMALL Leu/uL (NEGATIVE); URINE PROTEIN >=300 mg/dL (<30 mg/dL)
[2016-11-21 19:19] LABS: URINE APPEARANCE BLOODY (CLEAR); URINE COLOR RED (YELLOW)
[2016-11-21 19:27] LABS: URINE RBC TNTC /hpf (0-2)
[2016-11-21 19:28] LABS: URINE BACTERIA FEW (NEG)
[2016-11-21] MEDS ORDERED: Ciprofloxacin 400mg/200ml D5W 400 MG/200 ML BAG IVPB STA (19:30)
== END 2016-11-21 20:42 | disposition home or self-care (01) ==
LOC: ED 15:14
DX: R10.9 Unspecified abdominal pain (principal)
CPT/HCPCS: 80053; 81001; 83690; 85025; 87086; 96361; 96365; 96375; 96376; 99284; J0744; J1170; J2405; J7040

== ENCOUNTER 2016-11-28 12:03 | Emergency (ER) | payer SELFPAY ==
[2016-11-28 12:07] VITALS: BMI 41.5
[2016-11-28 12:11] VITALS: TEMP 98.4; O2SAT 97
[2016-11-28] MEDS ORDERED: Sodium Chloride 0.9% 1,000 ML IV STA (13:11)
[2016-11-28] MEDS ORDERED: Oxycodone/Acetaminophen 5/325 mg Tab PO STA (13:11)
[2016-11-28 14:09] LABS: BASO # 0.04 K/mm3 (0.0-2.0); BASO % 0.9 % (0.0-3.0); EOS # 0.2 (0.0-0.7); EOS % 3.7 % (1.5-5.0); GRAN # 2.8 (1.4-6.5); GRAN % 60.2 % (50.0-68.0); HEMATOCRIT 35.9 % (42.0-52.0); LYMPH # 1.1 (1.2-3.4); LYMPH % 24.6 % (22.0-35.0); MEAN CELL VOLUME 93.7 fl (80.0-105.0); MEAN CORPUSCULAR HEMOGLOBIN 32.9 pg (25.0-35.0); MEAN CORPUSCULAR HGB CONC 35.1 g/dl (31.0-37.0); MEAN PLATELET VOLUME 9.4 fl (7.0-11.0); MONO # 0.5 (0.1-0.6); MONO % 10.6 % (1.0-6.0); RED CELL DISTRIBUTION WIDTH 13.4 % (11.5-14.5); WHITE BLOOD COUNT 4.6 10^3/ul (4.5-11.0)
[2016-11-28 14:12] LABS: URINE BILIRUBIN SMALL (NEGATIVE); URINE BLOOD LARGE (NEGATIVE); URINE GLUCOSE (UA) NEGATIVE (NEGATIVE); URINE KETONE TRACE mg/dL (NEGATIVE); URINE LEUKOCYTE ESTERASE SMALL Leu/uL (NEGATIVE); URINE PROTEIN >=300 mg/dL (<30 mg/dL)
[2016-11-28 14:13] LABS: URINE APPEARANCE CLOUDY (CLEAR); URINE COLOR RED (YELLOW)
[2016-11-28 14:15] LABS: ALB/GLOB RATIO 1.5 (1.1-1.8); ALKALINE PHOSPHATASE 76 U/L (38-126); ALT/SGPT 38 U/L (7-56); AST/SGOT 35 U/L (17-59); BILIRUBIN,TOTAL 0.9 mg/dL (0.2-1.3); BLOOD UREA NITROGEN 18 mg/dL (7-21); CALCIUM 8.9 mg/dL (8.4-10.5); CARBON DIOXIDE 29 mmol/L (21-33); CHLORIDE 106 mmol/L (98-107); GFR AFRICAN-AMERICAN > 60; GLUCOSE,RANDOM 87 mg/dL (70-110); POTASSIUM 3.9 mmol/L (3.6-5.0); SODIUM 144 mmol/L (132-148); TOTAL PROTEIN 7.2 g/dL (5.8-8.3)
[2016-11-28 14:19] LABS: URINE RBC TNTC /hpf (0-2)
[2016-11-28 14:20] LABS: URINE BACTERIA SMALL (NEG)
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
[2016-11-28 15:23] VITALS: BP 129/85; PULSE 60; RESP 16
== END 2016-11-28 15:10 | disposition home or self-care (01) ==
LOC: ED 12:03
DX: N39.0 Urinary tract infection, site not specified (principal); R10.9 Unspecified abdominal pain; I10 Essential (primary) hypertension